=== PATIENT | male | born 1995 | race Caucasian/White ===

== ENCOUNTER 2019-12-07 14:30 | Emergency (ER) | payer OTHER ==
[2019-12-07] MEDS ORDERED: HYDROCODONE/ACETAMINOPHEN 5-325 MG TABLET PO ONE ×2 (15:05→15:45)
--- NOTE | 2019-12-07 15:46 | ER Document Report ---
HPI - HPI Patient complains to provider of: left ankle injury Time Seen by Provider: 12/07/19 15:04 Pain Level: 3 Context: 24-year-old male with no previous medical problems presents to the emergency room complaining of left ankle pain. Patient states he was playing football yesterday when he came down landing on his left ankle. States he was initially able to walk on it but is now unable to bear weight without pain. States he tried using ice and taking Tylenol with minimal relief. No history of previous trauma or injury to his ankle. Associated Symptoms: None Exacerbated by: Movement, Walking Relieved by: Remaining still Similar symptoms previously: No Recently seen / treated by doctor: No - ROS Systems Reviewed and Negative: Yes All other systems reviewed and negative - CONSTITUTIONAL Constitutional: DENIES: Fever, Chills - MUSCULOSKELETAL Musculoskeletal: REPORTS: Extremity pain - DERM Skin Color: Normal Past Medical History - General Information source: Patient - Social History Smoking Status: Current Every Day Smoker - Vapes Chew tobacco use (# tins/day): No Frequency of alcohol use: Occasional Drug Abuse: None Family History: Reviewed & Not Pertinent Vertical Provider Document - CONSTITUTIONAL Agree With Documented VS: Yes Exam Limitations: No Limitations General Appearance: Mild Distress - INFECTION CONTROL TRAVEL OUTSIDE OF THE [place] IN LAST 30 DAYS: No - HEENT HEENT: Atraumatic, Normocephalic - NECK Neck: Normal Inspection, Supple, Thyroid Normal - RESPIRATORY Respiratory: Breath Sounds Normal, No Respiratory Distress, Chest Non-Tender - CARDIOVASCULAR Cardiovascular: Regular Rate, Regular Rhythm, No Murmur - MUSCULOSKELETAL/EXTREMETIES Musculoskeletal/Extremeties: Tender - Tenderness with swelling noted to the left medial malleolus. Painful range of motion with flexion, extension, eversion and inversion to the left ankle. There is no obvious deformity noted. - NEURO Level of Consciousness: Awake, Alert, Appropriate Motor/Sensory: No Motor Deficit, No Sensory Deficit Notes: Positive left pedal pulse. Capillary refill less than 3 seconds. - DERM Integumentary: Warm, Dry, No Rash Course - Re-evaluation Re-evalutation: 12/07/19 15:59 Reviewed x-ray results with patient. Aircast and crutches applied by nursing staff as documented. Crutch training as documented. He was counseled to rest, ice, elevate his ankle. Weightbearing as tolerated. Medications as prescribed. E force was reviewed okay for prescription. Outpatient follow-up with orthopedics if not improving in 2 to 3 days. Patient will be provided with on- call physician. Patient was given strict return to the emergency room guidelines. Return for any new or worsening symptoms. All questions were answered. Patient verbalized understanding and agrees with plan of care. - Vital Signs Vital signs: Temp Pulse Resp BP Pulse Ox 98.4 F 91 16 122/98 H 98 12/07/19 14:54 12/07/19 14:54 12/07/19 14:54 12/07/19 14:54 12/07/19 14:54 - Diagnostic Test Radiology reviewed: Reports reviewed Procedures - Immobilization Left Ankle Time completed: 15:57 Pre-Proc Neuro Vasc Exam: Normal Immobilizer type: Ankle stirrup, Crutches Performed by: RN Post-Proc Neuro Vasc Exam: Normal Alignment checked and good: Yes Discharge - Discharge Clinical Impression: Avulsion fracture of left ankle Qualifiers: Encounter type: initial encounter Fracture type: closed Qualified Code(s): S82.892A - Other fracture of left lower leg, initial encounter for closed fracture Condition: Stable Disposition: HOME, SELF-CARE Instructions: Ankle Stirrup Splint ([facility]), Avulsion Fracture of the Ankle ([facility]), Use of Crutches ([facility]) Additional Instructions: Rest, ice, elevate medication as prescribed. Outpatient follow-up with orthopedics if not improving in 2 to 3 days. Return to the emergency room for any new or worsening symptoms. Prescriptions: Hydrocodone/Acetaminophen [[place] 5-325 mg Tablet] 1 tab PO Q6H PRN #12 tablet PRN Reason: For Pain Referrals: CHARLETTE BYRNES MD [ACTIVE STAFF] - Follow up as needed
--- NOTE | 2019-12-07 15:50 | RADIOLOGY REPORT (SQ) ---
EXAM DESCRIPTION: ANKLE LEFT COMPLETE IMAGES COMPLETED DATE/TIME: 12/07/2019 2:13 pm REASON FOR STUDY: injury COMPARISON: None. NUMBER OF VIEWS: Three views. TECHNIQUE: AP, lateral, and oblique radiographic images acquired of the left ankle. LIMITATIONS: None. FINDINGS: MINERALIZATION: Normal. BONES: Possible tiny avulsion injury at the medial talus. No acute displaced fracture. Normal ankle mortise alignment. JOINTS: Small ankle joint effusion. No intra-articular loose body. SOFT TISSUES: Soft tissue swelling at the medial malleoli S. OTHER: No other significant finding. IMPRESSION: Probable small avulsion injury at the medial talus, with associated small joint effusion and soft tissue swelling. No acute displaced fracture. TECHNICAL DOCUMENTATION: JOB ID: [id number] [employer]- All Rights Reserved Reading location - IP/workstation name: [email or web address]
[2019-12-07 16:12] VITALS: BP 126/80
== END 2019-12-07 16:10 | disposition home or self-care (01) ==
LOC: ER 14:30
DX: S82.892A Other fracture of left lower leg, initial encounter for closed fracture (principal); X58.XXXA Exposure to other specified factors, initial encounter; Y93.61 Activity, american tackle football; F17.290 Nicotine dependence, other tobacco product, uncomplicated
CPT/HCPCS: 99283